=== PATIENT | female | born 1940 | race Caucasian/White ===

== ENCOUNTER 2018-07-23 15:24 | Emergency (ER) | payer MEDICARE, SELFPAY ==
--- NOTE | 2018-07-23 15:34 | PC.NURSE ---
in BR when called for triage
[2018-07-23 15:40] VITALS: BP 169/84; PULSE 82; RESP 20; TEMP 36.6; O2SAT 100; BMI 24.9
--- NOTE | 2018-07-23 17:04 | ED.BACK ---
HPI - Back Pain/Injury <KAZ Bo - Last Filed: 07/23/18 22:20> General Chief Complaint: Back Pain/Injury Stated Complaint: BACK PAIN,THINKS KIDNEY STONE Time Seen by Provider: 07/23/18 17:04 Source: patient Mode of arrival: ambulatory Limitations: no limitations History of Present Illness HPI Narrative: 77-year-old female with history of hypertension and is a nonsmoker here for complaint of right flank pain over the past 5 days. She states that she was riding a car was they were having a road trip when the pain started. She denies any trauma to the area. She reports increased pain with motion to the lower back and ambulation. She denies any urinary symptoms. No loss of bladder or bowel control. She is ambulatory into the emergency room. She states she is concerned that she may have a kidney stone as the pain has been sharp at times. She denies any fevers or chills. No abdominal pain. No nausea vomiting. MD Complaint: back pain Related Data Home Medications Medication Instructions Recorded Confirmed hydrochlorothiazide #0 12/24/12 Previous Rx's Medication Instructions Recorded hydrocodone-acetaminophen [[place]] 1 tab PO Q4-6H PRN #10 tab 07/23/18 Allergies Allergy/AdvReac Type Severity Reaction Status Date / Time PCN (PENICILLIN) Allergy Mild NAUSEA Uncoded 10/26/17 12:20 Review of Systems <KAZ Bo - Last Filed: 07/23/18 22:20> Review of Systems All systems reviewed & are unremarkable except as noted in HPI and below Constitutional Denies chills, Denies fever(s), Denies lethargy and Denies weakness Eyes Denies change in vision, Denies eye discharge, Denies irritation and Denies loss of vision ENT Ears, Nose, Mouth, and Throat: Denies change in voice, Denies neck pain and Denies sore throat Cardiovascular Denies chest pain, Denies irregular heart rhythm, Denies lightheadedness, Denies palpitations, Denies dyspnea, Denies dyspnea on exertion and Denies orthopnea Respiratory Denies cough, Denies dyspnea, Denies dyspnea on exertion and Denies wheezing Gastrointestinal Gastrointestinal: Denies abdominal pain, Denies change in bowel habits, Denies diarrhea, Denies nausea and Denies vomiting Genitourinary Comments: Right flank pain Musculoskeletal Denies neck pain Integumentary/Breasts Denies pruritus, Denies erythema, Denies rash and Denies wounds Neurologic Denies confusion, Denies loss of vision and Denies weakness Psychiatric Denies anxiety, Denies confusion, Denies depression, Denies homicidal ideation and Denies suicidal ideation Endocrine Denies palpitations Hematologic/Lymphatic Denies easy bruising Allergic/Immunologic Denies wheezing Exam <KAZ Bo - Last Filed: 07/23/18 22:20> Initial Vital Signs Initial Vital Signs: Vital Signs Temperature 97.8 F 07/23/18 15:40 Pulse Rate 82 07/23/18 15:40 Respiratory Rate 20 07/23/18 15:40 Blood Pressure 169/84 H 07/23/18 15:40 Pulse Oximetry 100 07/23/18 15:40 Const General: cooperative and well developed Nutritional Appearance: well nourished Orientation: alert, awake, oriented x3 and not confused HENMT Mouth: oral mucosae normal and moist mucous membranes Eyes Conjunctivae: conjunctivae normal Sclera: sclerae normal Pupils: PERRL EOM: EOM intact bilaterally Resp Effort & Inspection: normal respiratory effort, able to speak in complete sentences, no respiratory distress and no use of accessory muscles Auscultation: clear to auscultation bilaterally, no rales, no rhonchi and no wheezes Cardio Rate: regular rate Rhythm: regular rhythm Heart Sounds: no click, no gallops, no murmurs and no rubs Pulses: normal peripheral pulses GI Inspection: non-distended Palpation: soft, no hepatosplenomegaly, No guarding, No pulsatile mass and No tender Auscultation: normal bowel sounds General: No CVA tenderness Back/Spine/Pelvis Other: Tenderness to the right lumbar paraspinals and right lateral lumbar area no signs of trauma. No deformities. Distal sensation is intact. Distal range of motion is intact. Distal pulses are intact. Skin General: no rashes or lesions noted, No jaundice and No petechiae <Hubert Garrett DO - Last Filed: 07/23/18 22:31> Initial Vital Signs Initial Vital Signs: Vital Signs Temperature 97.8 F 07/23/18 15:40 Pulse Rate 82 07/23/18 15:40 Respiratory Rate 20 07/23/18 15:40 Blood Pressure 169/84 H 07/23/18 15:40 Pulse Oximetry 100 07/23/18 15:40 Course <KAZ Bo - Last Filed: 07/23/18 22:20> Orders Ordered: ED Orders 07/23/18 17:16 CT kidney ureter bladder (KUB) Stat 07/23/18 17:30 Complete Blood Count AUTO DIFF Stat Comprehensive Metabolic Panel Stat Discontinued Medications Hydrocodone Bitart/Acetaminophen (Vicodin Prepack) 1 bottle MISC SEEINSTR ONE Stop: 07/23/18 18:56 Last Admin: 07/23/18 19:06 Dose: 1 bottle Hydromorphone HCl (Dilaudid) 0.5 mg IV NOW ONE Stop: 07/23/18 18:48 Last Admin: 07/23/18 19:05 Dose: 0.5 mg Sodium Chloride (Normal Saline 0.9%) 1,000 mls @ 1,000 mls/hr IV BOLUS ONE Stop: 07/23/18 18:15 Last Infusion: 07/23/18 18:46 Dose: 0 mls/hr Admin: 07/23/18 17:48 Dose: 1,000 mls/hr Ketorolac Tromethamine (Toradol) 30 mg IV NOW ONE Stop: 07/23/18 17:18 Last Admin: 07/23/18 17:49 Dose: 30 mg Ondansetron HCl (Zofran) 4 mg IV NOW ONE Stop: 07/23/18 17:18 Last Admin: 07/23/18 17:49 Dose: 4 mg Ondansetron HCl (Zofran) 4 mg IV NOW ONE Stop: 07/23/18 18:48 Last Admin: 07/23/18 19:07 Dose: 4 mg Vital Signs - 8 hr 07/23/18 15:40 07/23/18 18:00 07/23/18 19:33 Temperature 97.8 F Pulse Rate 82 63 67 Respiratory Rate 20 16 13 Blood Pressure 169/84 H 156/58 H Blood Pressure [Left Arm] 144/66 H Pulse Oximetry 100 98 96 <Hubert Garrett DO - Last Filed: 07/23/18 22:31> Orders Ordered: ED Orders 07/23/18 17:16 CT kidney ureter bladder (KUB) Stat 07/23/18 17:30 Complete Blood Count AUTO DIFF Stat Comprehensive Metabolic Panel Stat Discontinued Medications Hydrocodone Bitart/Acetaminophen (Vicodin Prepack) 1 bottle MISC SEEINSTR ONE Stop: 07/23/18 18:56 Last Admin: 07/23/18 19:06 Dose: 1 bottle Hydromorphone HCl (Dilaudid) 0.5 mg IV NOW ONE Stop: 07/23/18 18:48 Last Admin: 07/23/18 19:05 Dose: 0.5 mg Sodium Chloride (Normal Saline 0.9%) 1,000 mls @ 1,000 mls/hr IV BOLUS ONE Stop: 07/23/18 18:15 Last Infusion: 07/23/18 18:46 Dose: 0 mls/hr Admin: 07/23/18 17:48 Dose: 1,000 mls/hr Ketorolac Tromethamine (Toradol) 30 mg IV NOW ONE Stop: 07/23/18 17:18 Last Admin: 07/23/18 17:49 Dose: 30 mg Ondansetron HCl (Zofran) 4 mg IV NOW ONE Stop: 07/23/18 17:18 Last Admin: 07/23/18 17:49 Dose: 4 mg Ondansetron HCl (Zofran) 4 mg IV NOW ONE Stop: 07/23/18 18:48 Last Admin: 07/23/18 19:07 Dose: 4 mg Vital Signs - 8 hr 07/23/18 15:40 07/23/18 18:00 07/23/18 19:33 Temperature 97.8 F Pulse Rate 82 63 67 Respiratory Rate 20 16 13 Blood Pressure 169/84 H 156/58 H Blood Pressure [Left Arm] 144/66 H Pulse Oximetry 100 98 96 MDM - Back Pain/Injury <KAZ Bo - Last Filed: 07/23/18 22:20> Lab Data Result diagrams: 07/23/18 17:30 07/23/18 17:30 Lab Results 07/23/18 07/23/18 Range/Units 17:30 17:30 WBC 6.5 (4.5-11.0) X10^3/uL RBC 4.13 (4.0-5.2) X10^6/uL Hgb 12.7 (12.0-16.0) g/dL Hct 37.3 (36-46) % MCV 90.3 (80-100) fL MCH 30.8 (26-34) PG MCHC 34.1 (30-36) % RDW 14.0 (11.6-14.8) % Plt Count 345 (150-400) X10^3/uL Neut % (Auto) 55.5 (50-75) % Lymph % (Auto) 32.4 (25-40) % [place] % (Auto) 10.3 (3-14) % Eos % (Auto) 0.8 L (2-4) % Baso % (Auto) 1.0 (0-2) % Neut # (Auto) 3600 (1634-3956) /uL Sodium 131 L (137-145) mmol/L Potassium 4.3 (3.4-5.1) mmol/L Chloride 96 L (98-107) mmol/L Carbon Dioxide 23 (22-32) mmol/L BUN 14 (7-17) mg/dL Creatinine 0.80 (0.52-1.04) mg/dL Estimated GFR > 60.0 (>60) mL/min BUN/Creatinine Ratio 17.5 (6-22) Glucose 97 (80-110) mg/dL Calcium 9.7 (8.4-10.2) mg/dL Total Bilirubin 0.6 (0.2-1.3) mg/dL AST 21 (14-36) IU/L ALT 39 (9-52) IU/L Alkaline Phosphatase 74 (38-126) U/L Total Protein 7.5 (6.3-8.2) g/dL Albumin 4.7 (3.5-5.0) g/dL Globulin 2.8 (1.7-4.1) g/dL Albumin/Globulin Ratio 1.7 (1.0-2.8) Urine Dip Bedside Urine Glucose Negative Bedside Urine Bilirubin - Negative Bedside Urine Ketone - Negative Urine Specific [place] 1.010 Bedside Urine Occult Blood - Negative Bedside Urine pH 6.5 Bedside Urine Protein - Negative Bedside Urine Urobilinogen - Negative Bedside Urine Nitrite - Negative Bedside Urine Leukocytes - Negative Esterase Imaging Data CT scan - abdomen: Radiologist's impression: [address] [address] [address] Scan Report Signed Patient: Yazmin Woodard MR#: [id number] : 1940 Acct:[id number] Age/Sex: 77 / F Date of Service: 07/23/18 Loc: ED Accession Number: [id number] Procedure: CT kidney ureter bladder (KUB) Ordering Provider: Uziel Kim PROCEDURE: CT KIDNEY URETER BLADDER (KUB) INDICATIONS: Right flank pain TECHNIQUE: Noncontrast 5 mm thick sections acquired from the diaphragms to the symphysis. 5 mm thick coronal and sagittal reformats were then performed. For radiation dose reduction, the following was used: automated exposure control, adjustment of mA and/or kV according to patient size. COMPARISON: None. FINDINGS: Image quality: Excellent. Lung bases: There is a small linear opacity likely representing scarring within the medial right lower lobe. A small peripheral subpleural nodule is demonstrated in the right lower lobe measuring approximately 4 mm on series 3 image 11 a small 2-3 mm subpleural nodule is also noted in the right middle lobe on image 4. Heart size is normal. Urinary system: Both kidneys are normal in size. No kidney stones. No hydronephrosis or perinephric fat stranding. Both ureters appear non-dilated throughout their expected courses. Bladder wall thickness is normal; no calcified bladder stones. Other solid organs: Noncontrast evaluation of the liver demonstrates no focal hepatic lesions. Gallbladder appears within normal limits without calcified gallstones. Pancreas is normal in contours. Spleen is normal in size. No adrenal nodules. Peritoneum and bowel: Unenhanced bowel loops demonstrate normal wall thickness and caliber. No evidence of appendicitis. There is colonic diverticulosis without acute diverticulitis. No free fluid or air. Nodes and vessels: No retroperitoneal or mesenteric adenopathy by size criteria. Aorta and inferior vena cava are normal in caliber. Abdominal wall: No ventral hernias. Pelvis: The uterus is surgically absent. No free pelvic fluid. No inguinal hernias or adenopathy. Bones: No suspicious bony lesions. No vertebral body compression fractures. IMPRESSION: 1. No evidence of nephrolithiasis or hydronephrosis. 2. No definite acute intra-abdominal abnormality. 3. Colonic diverticulosis without acute diverticulitis. 4. Small subpleural nodules in the visualized right lung base. Followup may be performed in 12 months to demonstrate stability if clinically indicated. Dictated by: Alec Roe M.D. on 07/23/2018 at 18:07 Approved by: Alec Roe M.D. on 07/23/2018 at 18:11 [facility] Narrative Medical decision making narrative: CBC and Chem panel were obtained were unremarkable. KUB CT was obtained was negative for any acute findings. Urinalysis was negative for urinary tract infection or blood. Sinus symptoms presents as a muscle strain into the lumbar region. [id number] ibuprofen as needed for any discomfort. Small amount of [place] is provided for breakthrough pain at patient's request. Follow up with primary care provider later this week for re-evaluation. For any worsening symptoms return to the emergency room. <Hubert Garrett, - Last Filed: 07/23/18 22:31> Lab Data Lab Results 07/23/18 07/23/18 Range/Units 17:30 17:30 WBC 6.5 (4.5-11.0) X10^3/uL RBC 4.13 (4.0-5.2) X10^6/uL Hgb 12.7 (12.0-16.0) g/dL Hct 37.3 (36-46) % MCV 90.3 (80-100) fL MCH 30.8 (26-34) PG MCHC 34.1 (30-36) % RDW 14.0 (11.6-14.8) % Plt Count 345 (150-400) X10^3/uL Neut % (Auto) 55.5 (50-75) % Lymph % (Auto) 32.4 (25-40) % Pike % (Auto) 10.3 (3-14) % Eos % (Auto) 0.8 L (2-4) % Baso % (Auto) 1.0 (0-2) % Neut # (Auto) 3600 (9620-6910) /uL Sodium 131 L (137-145) mmol/L Potassium 4.3 (3.4-5.1) mmol/L Chloride 96 L (98-107) mmol/L Carbon Dioxide 23 (22-32) mmol/L BUN 14 (7-17) mg/dL Creatinine 0.80 (0.52-1.04) mg/dL Estimated GFR > 60.0 (>60) mL/min BUN/Creatinine Ratio 17.5 (6-22) Glucose 97 (80-110) mg/dL Calcium 9.7 (8.4-10.2) mg/dL Total Bilirubin 0.6 (0.2-1.3) mg/dL AST 21 (14-36) IU/L ALT 39 (9-52) IU/L Alkaline Phosphatase 74 (38-126) U/L Total Protein 7.5 (6.3-8.2) g/dL Albumin 4.7 (3.5-5.0) g/dL Globulin 2.8 (1.7-4.1) g/dL Albumin/Globulin Ratio 1.7 (1.0-2.8) Urine Dip Bedside Urine Glucose Negative Bedside Urine Bilirubin - Negative Bedside Urine Ketone - Negative Urine Specific [place] 1.010 Bedside Urine Occult Blood - Negative Bedside Urine pH 6.5 Bedside Urine Protein - Negative Bedside Urine Urobilinogen - Negative Bedside Urine Nitrite - Negative Bedside Urine Leukocytes - Negative Esterase Discharge Plan Departure Patient Disposition: Home Clinical Impression: Strain of lumbar region Discharge Date/Time: 07/23/18 19:36 Interventions: ED Discharge Assessment Last Done: 07/23/18 19:33 Instructions: DI for Low Back Pain Activity Restrictions/Additional Instructions: Laboratory results today were normal. CT of the abdomen was negative for any acute findings. Signs and symptoms presents as strain to the lumbar region. Use [id number] ibuprofen as needed for any discomfort. Rest area. Follow up with her primary care provider later this week for re-evaluation. Small amount of [place] is provided for breakthrough pain no driving while on the [place]. For any worsening symptoms return to the emergency room. Prescriptions: New hydrocodone-acetaminophen [[place]] 5-325 mg tablet 1 tab PO Q4-6H PRN (Reason: pain) Qty: 10 RF: 0 No Action hydrochlorothiazide 12.5 MG capsule Qty: 0 RF: 0 Referrals: [facility] [Provider Group] <Hubert Garrett DO - Last Filed: 07/23/18 22:31> Cosign ED Attending Pierce Attestation: I was available for consultation during this patient's emergency department encounter
--- NOTE | 2018-07-23 17:16 | DI.CT.S_ITS ---
PROCEDURE: CT KIDNEY URETER BLADDER (KUB) INDICATIONS: Right flank pain TECHNIQUE: Noncontrast 5 mm thick sections acquired from the diaphragms to the symphysis. 5 mm thick coronal and sagittal reformats were then performed. For radiation dose reduction, the following was used: automated exposure control, adjustment of mA and/or kV according to patient size. COMPARISON: None. FINDINGS: Image quality: Excellent. Lung bases: There is a small linear opacity likely representing scarring within the medial right lower lobe. A small peripheral subpleural nodule is demonstrated in the right lower lobe measuring approximately 4 mm on series 3 image 11 a small 2-3 mm subpleural nodule is also noted in the right middle lobe on image 4. Heart size is normal. Urinary system: Both kidneys are normal in size. No kidney stones. No hydronephrosis or perinephric fat stranding. Both ureters appear non-dilated throughout their expected courses. Bladder wall thickness is normal; no calcified bladder stones. Other solid organs: Noncontrast evaluation of the liver demonstrates no focal hepatic lesions. Gallbladder appears within normal limits without calcified gallstones. Pancreas is normal in contours. Spleen is normal in size. No adrenal nodules. Peritoneum and bowel: Unenhanced bowel loops demonstrate normal wall thickness and caliber. No evidence of appendicitis. There is colonic diverticulosis without acute diverticulitis. No free fluid or air. Nodes and vessels: No retroperitoneal or mesenteric adenopathy by size criteria. Aorta and inferior vena cava are normal in caliber. Abdominal wall: No ventral hernias. Pelvis: The uterus is surgically absent. No free pelvic fluid. No inguinal hernias or adenopathy. Bones: No suspicious bony lesions. No vertebral body compression fractures. IMPRESSION: 1. No evidence of nephrolithiasis or hydronephrosis. 2. No definite acute intra-abdominal abnormality. 3. Colonic diverticulosis without acute diverticulitis. 4. Small subpleural nodules in the visualized right lung base. Followup may be performed in 12 months to demonstrate stability if clinically indicated. Dictated by: Alec Roe M.D. on 07/23/2018 at 18:07 Approved by: Alec Roe M.D. on 07/23/2018 at 18:11
[2018-07-23] MEDS: SODIUM CHLORIDE 0.9% 1,000 ML 1000 ML IV (17:48)
[2018-07-23] MEDS: KETOROLAC 60 MG/2 ML VIAL 30 MG IV (17:49)
[2018-07-23] MEDS: ONDANSETRON 4 MG/2 ML INJ IV ×2 (17:49→19:07)
[2018-07-23 17:56] LABS: Add Manual Diff / Slide Review NO; Eosinophils Percent Auto 0.8 % (2-4); Hematocrit 37.3 % (36-46); Hemoglobin 12.7 g/dL (12.0-16.0); Lymphocytes Percent Auto 32.4 % (25-40); Mean Corpuscular HGB Conc 34.1 % (30-36); Mean Corpuscular Hemoglobin 30.8 PG (26-34); Mean Corpuscular Volume 90.3 fL (80-100); Monocytes Percent Auto 10.3 % (3-14); Neutrophils Absolute Auto 3600 /uL (1500-7000); Neutrophils Percent Auto 55.5 % (50-75); Platelet Count 345 X10^3/uL (150-400); Red Blood Cell Count 4.13 X10^6/uL (4.0-5.2); White Blood Cell Count 6.5 X10^3/uL (4.5-11.0)
[2018-07-23 18:00] VITALS: BP 144/66; PULSE 63; RESP 16; O2SAT 98
[2018-07-23 18:06] LABS: Alanine Aminotransferase 39 IU/L (9-52); Albumin 4.7 g/dL (3.5-5.0); Albumin Globulin Ratio 1.7 (1.0-2.8); Alkaline Phosphatase 74 U/L (38-126); Aspartate Aminotransferase 21 IU/L (14-36); BUN Creatinine Ratio 17.5 (6-22); Bilirubin Total 0.6 mg/dL (0.2-1.3); Blood Urea Nitrogen 14 mg/dL (7-17); Calcium 9.7 mg/dL (8.4-10.2); Carbon Dioxide 23 mmol/L (22-32); Chloride 96 mmol/L (98-107); Estimated Glomerular Filt Rate > 60.0 mL/min (>60); Globulin 2.8 g/dL (1.7-4.1); Glucose 97 mg/dL (80-110); HEMOLYSIS < 15 (0-50); Potassium 4.3 mmol/L (3.4-5.1); Sodium 131 mmol/L (137-145); Total Protein 7.5 g/dL (6.3-8.2)
--- NOTE | 2018-07-23 18:45 | ED_ITS ---
HPI - Back Pain/Injury <KAZ Bo - Last Filed: 07/23/18 22:20> General Chief Complaint: Back Pain/Injury Stated Complaint: BACK PAIN,THINKS KIDNEY STONE Time Seen by Provider: 07/23/18 17:04 Source: patient Mode of arrival: ambulatory Limitations: no limitations History of Present Illness HPI Narrative: 77-year-old female with history of hypertension and is a nonsmoker here for complaint of right flank pain over the past 5 days. She states that she was riding a car was they were having a road trip when the pain started. She denies any trauma to the area. She reports increased pain with motion to the lower back and ambulation. She denies any urinary symptoms. No loss of bladder or bowel control. She is ambulatory into the emergency room. She states she is concerned that she may have a kidney stone as the pain has been sharp at times. She denies any fevers or chills. No abdominal pain. No nausea vomiting. MD Complaint: back pain Related Data Home Medications Medication Instructions Recorded Confirmed hydrochlorothiazide #0 12/24/12 Previous Rx's Medication Instructions Recorded hydrocodone-acetaminophen [[place]] 1 tab PO Q4-6H PRN #10 tab 07/23/18 Allergies Allergy/AdvReac Type Severity Reaction Status Date / Time PCN (PENICILLIN) Allergy Mild NAUSEA Uncoded 10/26/17 12:20 Review of Systems <KAZ Bo - Last Filed: 07/23/18 22:20> Review of Systems All systems reviewed & are unremarkable except as noted in HPI and below Constitutional Denies chills, Denies fever(s), Denies lethargy and Denies weakness Eyes Denies change in vision, Denies eye discharge, Denies irritation and Denies loss of vision ENT Ears, Nose, Mouth, and Throat: Denies change in voice, Denies neck pain and Denies sore throat Cardiovascular Denies chest pain, Denies irregular heart rhythm, Denies lightheadedness, Denies palpitations, Denies dyspnea, Denies dyspnea on exertion and Denies orthopnea Respiratory Denies cough, Denies dyspnea, Denies dyspnea on exertion and Denies wheezing Gastrointestinal Gastrointestinal: Denies abdominal pain, Denies change in bowel habits, Denies diarrhea, Denies nausea and Denies vomiting Genitourinary Comments: Right flank pain Musculoskeletal Denies neck pain Integumentary/Breasts Denies pruritus, Denies erythema, Denies rash and Denies wounds Neurologic Denies confusion, Denies loss of vision and Denies weakness Psychiatric Denies anxiety, Denies confusion, Denies depression, Denies homicidal ideation and Denies suicidal ideation Endocrine Denies palpitations Hematologic/Lymphatic Denies easy bruising Allergic/Immunologic Denies wheezing Exam <KAZ Bo - Last Filed: 07/23/18 22:20> Initial Vital Signs Initial Vital Signs: Vital Signs Temperature 97.8 F 07/23/18 15:40 Pulse Rate 82 07/23/18 15:40 Respiratory Rate 20 07/23/18 15:40 Blood Pressure 169/84 H 07/23/18 15:40 Pulse Oximetry 100 07/23/18 15:40 Const General: cooperative and well developed Nutritional Appearance: well nourished Orientation: alert, awake, oriented x3 and not confused HENMT Mouth: oral mucosae normal and moist mucous membranes Eyes Conjunctivae: conjunctivae normal Sclera: sclerae normal Pupils: PERRL EOM: EOM intact bilaterally Resp Effort & Inspection: normal respiratory effort, able to speak in complete sentences, no respiratory distress and no use of accessory muscles Auscultation: clear to auscultation bilaterally, no rales, no rhonchi and no wheezes Cardio Rate: regular rate Rhythm: regular rhythm Heart Sounds: no click, no gallops, no murmurs and no rubs Pulses: normal peripheral pulses GI Inspection: non-distended Palpation: soft, no hepatosplenomegaly, No guarding, No pulsatile mass and No tender Auscultation: normal bowel sounds General: No CVA tenderness Back/Spine/Pelvis Other: Tenderness to the right lumbar paraspinals and right lateral lumbar area no signs of trauma. No deformities. Distal sensation is intact. Distal range of motion is intact. Distal pulses are intact. Skin General: no rashes or lesions noted, No jaundice and No petechiae <Hubert Garrett DO - Last Filed: 07/23/18 22:31> Initial Vital Signs Initial Vital Signs: Vital Signs Temperature 97.8 F 07/23/18 15:40 Pulse Rate 82 07/23/18 15:40 Respiratory Rate 20 07/23/18 15:40 Blood Pressure 169/84 H 07/23/18 15:40 Pulse Oximetry 100 07/23/18 15:40 Course <KAZ Bo - Last Filed: 07/23/18 22:20> Orders Ordered: ED Orders 07/23/18 17:16 CT kidney ureter bladder (KUB) Stat 07/23/18 17:30 Complete Blood Count AUTO DIFF Stat Comprehensive Metabolic Panel Stat Discontinued Medications Hydrocodone Bitart/Acetaminophen (Vicodin Prepack) 1 bottle MISC SEEINSTR ONE Stop: 07/23/18 18:56 Last Admin: 07/23/18 19:06 Dose: 1 bottle Hydromorphone HCl (Dilaudid) 0.5 mg IV NOW ONE Stop: 07/23/18 18:48 Last Admin: 07/23/18 19:05 Dose: 0.5 mg Sodium Chloride (Normal Saline 0.9%) 1,000 mls @ 1,000 mls/hr IV BOLUS ONE Stop: 07/23/18 18:15 Last Infusion: 07/23/18 18:46 Dose: 0 mls/hr Admin: 07/23/18 17:48 Dose: 1,000 mls/hr Ketorolac Tromethamine (Toradol) 30 mg IV NOW ONE Stop: 07/23/18 17:18 Last Admin: 07/23/18 17:49 Dose: 30 mg Ondansetron HCl (Zofran) 4 mg IV NOW ONE Stop: 07/23/18 17:18 Last Admin: 07/23/18 17:49 Dose: 4 mg Ondansetron HCl (Zofran) 4 mg IV NOW ONE Stop: 07/23/18 18:48 Last Admin: 07/23/18 19:07 Dose: 4 mg Vital Signs - 8 hr 07/23/18 15:40 07/23/18 18:00 07/23/18 19:33 Temperature 97.8 F Pulse Rate 82 63 67 Respiratory Rate 20 16 13 Blood Pressure 169/84 H 156/58 H Blood Pressure [Left Arm] 144/66 H Pulse Oximetry 100 98 96 <Hubert Garrett DO - Last Filed: 07/23/18 22:31> Orders Ordered: ED Orders 07/23/18 17:16 CT kidney ureter bladder (KUB) Stat 07/23/18 17:30 Complete Blood Count AUTO DIFF Stat Comprehensive Metabolic Panel Stat Discontinued Medications Hydrocodone Bitart/Acetaminophen (Vicodin Prepack) 1 bottle MISC SEEINSTR ONE Stop: 07/23/18 18:56 Last Admin: 07/23/18 19:06 Dose: 1 bottle Hydromorphone HCl (Dilaudid) 0.5 mg IV NOW ONE Stop: 07/23/18 18:48 Last Admin: 07/23/18 19:05 Dose: 0.5 mg Sodium Chloride (Normal Saline 0.9%) 1,000 mls @ 1,000 mls/hr IV BOLUS ONE Stop: 07/23/18 18:15 Last Infusion: 07/23/18 18:46 Dose: 0 mls/hr Admin: 07/23/18 17:48 Dose: 1,000 mls/hr Ketorolac Tromethamine (Toradol) 30 mg IV NOW ONE Stop: 07/23/18 17:18 Last Admin: 07/23/18 17:49 Dose: 30 mg Ondansetron HCl (Zofran) 4 mg IV NOW ONE Stop: 07/23/18 17:18 Last Admin: 07/23/18 17:49 Dose: 4 mg Ondansetron HCl (Zofran) 4 mg IV NOW ONE Stop: 07/23/18 18:48 Last Admin: 07/23/18 19:07 Dose: 4 mg Vital Signs - 8 hr 07/23/18 15:40 07/23/18 18:00 07/23/18 19:33 Temperature 97.8 F Pulse Rate 82 63 67 Respiratory Rate 20 16 13 Blood Pressure 169/84 H 156/58 H Blood Pressure [Left Arm] 144/66 H Pulse Oximetry 100 98 96 MDM - Back Pain/Injury <KAZ Bo - Last Filed: 07/23/18 22:20> Lab Data Result diagrams: 07/23/18 17:30 07/23/18 17:30 Lab Results 07/23/18 07/23/18 Range/Units 17:30 17:30 WBC 6.5 (4.5-11.0) X10^3/uL RBC 4.13 (4.0-5.2) X10^6/uL Hgb 12.7 (12.0-16.0) g/dL Hct 37.3 (36-46) % MCV 90.3 (80-100) fL MCH 30.8 (26-34) PG MCHC 34.1 (30-36) % RDW 14.0 (11.6-14.8) % Plt Count 345 (150-400) X10^3/uL Neut % (Auto) 55.5 (50-75) % Lymph % (Auto) 32.4 (25-40) % [place] % (Auto) 10.3 (3-14) % Eos % (Auto) 0.8 L (2-4) % Baso % (Auto) 1.0 (0-2) % Neut # (Auto) 3600 (3163-1722) /uL Sodium 131 L (137-145) mmol/L Potassium 4.3 (3.4-5.1) mmol/L Chloride 96 L (98-107) mmol/L Carbon Dioxide 23 (22-32) mmol/L BUN 14 (7-17) mg/dL Creatinine 0.80 (0.52-1.04) mg/dL Estimated GFR > 60.0 (>60) mL/min BUN/Creatinine Ratio 17.5 (6-22) Glucose 97 (80-110) mg/dL Calcium 9.7 (8.4-10.2) mg/dL Total Bilirubin 0.6 (0.2-1.3) mg/dL AST 21 (14-36) IU/L ALT 39 (9-52) IU/L Alkaline Phosphatase 74 (38-126) U/L Total Protein 7.5 (6.3-8.2) g/dL Albumin 4.7 (3.5-5.0) g/dL Globulin 2.8 (1.7-4.1) g/dL Albumin/Globulin Ratio 1.7 (1.0-2.8) Urine Dip Bedside Urine Glucose Negative Bedside Urine Bilirubin - Negative Bedside Urine Ketone - Negative Urine Specific [place] 1.010 Bedside Urine Occult Blood - Negative Bedside Urine pH 6.5 Bedside Urine Protein - Negative Bedside Urine Urobilinogen - Negative Bedside Urine Nitrite - Negative Bedside Urine Leukocytes - Negative Esterase Imaging Data CT scan - abdomen: Radiologist's impression: [address] [address] [address] Scan Report Signed Patient: Yazmin Woodard MR#: [id number] : 1940 Acct:[id number] Age/Sex: 77 / F Date of Service: 07/23/18 Loc: ED Accession Number: [id number] Procedure: CT kidney ureter bladder (KUB) Ordering Provider: Uziel Kim PROCEDURE: CT KIDNEY URETER BLADDER (KUB) INDICATIONS: Right flank pain TECHNIQUE: Noncontrast 5 mm thick sections acquired from the diaphragms to the symphysis. 5 mm thick coronal and sagittal reformats were then performed. For radiation dose reduction, the following was used: automated exposure control, adjustment of mA and/or kV according to patient size. COMPARISON: None. FINDINGS: Image quality: Excellent. Lung bases: There is a small linear opacity likely representing scarring within the medial right lower lobe. A small peripheral subpleural nodule is demonstrated in the right lower lobe measuring approximately 4 mm on series 3 image 11 a small 2-3 mm subpleural nodule is also noted in the right middle lobe on image 4. Heart size is normal. Urinary system: Both kidneys are normal in size. No kidney stones. No hydronephrosis or perinephric fat stranding. Both ureters appear non-dilated throughout their expected courses. Bladder wall thickness is normal; no calcified bladder stones. Other solid organs: Noncontrast evaluation of the liver demonstrates no focal hepatic lesions. Gallbladder appears within normal limits without calcified gallstones. Pancreas is normal in contours. Spleen is normal in size. No adrenal nodules. Peritoneum and bowel: Unenhanced bowel loops demonstrate normal wall thickness and caliber. No evidence of appendicitis. There is colonic diverticulosis without acute diverticulitis. No free fluid or air. Nodes and vessels: No retroperitoneal or mesenteric adenopathy by size criteria. Aorta and inferior vena cava are normal in caliber. Abdominal wall: No ventral hernias. Pelvis: The uterus is surgically absent. No free pelvic fluid. No inguinal hernias or adenopathy. Bones: No suspicious bony lesions. No vertebral body compression fractures. IMPRESSION: 1. No evidence of nephrolithiasis or hydronephrosis. 2. No definite acute intra-abdominal abnormality. 3. Colonic diverticulosis without acute diverticulitis. 4. Small subpleural nodules in the visualized right lung base. Followup may be performed in 12 months to demonstrate stability if clinically indicated. Dictated by: Alec Roe M.D. on 07/23/2018 at 18:07 Approved by: Alec Roe M.D. on 07/23/2018 at 18:11 [facility] Narrative Medical decision making narrative: CBC and Chem panel were obtained were unremarkable. KUB CT was obtained was negative for any acute findings. Urinalysis was negative for urinary tract infection or blood. Sinus symptoms presents as a muscle strain into the lumbar region. [id number] ibuprofen as needed for any discomfort. Small amount of [place] is provided for breakthrough pain at patient's request. Follow up with primary care provider later this week for re-evaluation. For any worsening symptoms return to the emergency room. <Hubert Garrett, - Last Filed: 07/23/18 22:31> Lab Data Lab Results 07/23/18 07/23/18 Range/Units 17:30 17:30 WBC 6.5 (4.5-11.0) X10^3/uL RBC 4.13 (4.0-5.2) X10^6/uL Hgb 12.7 (12.0-16.0) g/dL Hct 37.3 (36-46) % MCV 90.3 (80-100) fL MCH 30.8 (26-34) PG MCHC 34.1 (30-36) % RDW 14.0 (11.6-14.8) % Plt Count 345 (150-400) X10^3/uL Neut % (Auto) 55.5 (50-75) % Lymph % (Auto) 32.4 (25-40) % [place] % (Auto) 10.3 (3-14) % Eos % (Auto) 0.8 L (2-4) % Baso % (Auto) 1.0 (0-2) % Neut # (Auto) 3600 (3081-0817) /uL Sodium 131 L (137-145) mmol/L Potassium 4.3 (3.4-5.1) mmol/L Chloride 96 L (98-107) mmol/L Carbon Dioxide 23 (22-32) mmol/L BUN 14 (7-17) mg/dL Creatinine 0.80 (0.52-1.04) mg/dL Estimated GFR > 60.0 (>60) mL/min BUN/Creatinine Ratio 17.5 (6-22) Glucose 97 (80-110) mg/dL Calcium 9.7 (8.4-10.2) mg/dL Total Bilirubin 0.6 (0.2-1.3) mg/dL AST 21 (14-36) IU/L ALT 39 (9-52) IU/L Alkaline Phosphatase 74 (38-126) U/L Total Protein 7.5 (6.3-8.2) g/dL Albumin 4.7 (3.5-5.0) g/dL Globulin 2.8 (1.7-4.1) g/dL Albumin/Globulin Ratio 1.7 (1.0-2.8) Urine Dip Bedside Urine Glucose Negative Bedside Urine Bilirubin - Negative Bedside Urine Ketone - Negative Urine Specific [place] 1.010 Bedside Urine Occult Blood - Negative Bedside Urine pH 6.5 Bedside Urine Protein - Negative Bedside Urine Urobilinogen - Negative Bedside Urine Nitrite - Negative Bedside Urine Leukocytes - Negative Esterase Discharge Plan Departure Patient Disposition: Home Clinical Impression: Strain of lumbar region Discharge Date/Time: 07/23/18 19:36 Interventions: ED Discharge Assessment Last Done: 07/23/18 19:33 Instructions: DI for Low Back Pain Activity Restrictions/Additional Instructions: Laboratory results today were normal. CT of the abdomen was negative for any acute findings. Signs and symptoms presents as strain to the lumbar region. Use [id number] ibuprofen as needed for any discomfort. Rest area. Follow up with her primary care provider later this week for re-evaluation. Small amount of [place] is provided for breakthrough pain no driving while on the [place]. For any worsening symptoms return to the emergency room. Prescriptions: New hydrocodone-acetaminophen [[place]] 5-325 mg tablet 1 tab PO Q4-6H PRN (Reason: pain) Qty: 10 RF: 0 No Action hydrochlorothiazide 12.5 MG capsule Qty: 0 RF: 0 Referrals: [facility] [Provider Group] <Hubert Garrett DO - Last Filed: 07/23/18 22:31> Cosign ED Attending Pierce Attestation: I was available for consultation during this patient's emergency department encounter
[2018-07-23] MEDS: HYDROMORPHONE 1 MG INJ 0.5 MG IV (19:05)
[2018-07-23] MEDS: HYDROCODONE/ACET 5/325 PREPACK 1 BOTTLE MISC (19:06)
[2018-07-23 19:33] VITALS: BP 156/58; PULSE 67; RESP 13; O2SAT 96
== END 2018-07-23 19:36 | disposition home or self-care (01) ==
PROVIDERS: Emergency Provider Nurse Practitioner Family
DX: S39.012A Strain of muscle, fascia and tendon of lower back, initial encounter (principal)
CPT/HCPCS: 74176; 80053; 81003; 85025; 96361; 96374; 96375; 96376; 99283; 99284; J1170; J1885; J2405